=== PATIENT | male | born 1980 | race African-American/Black ===

== ENCOUNTER 2018-09-18 16:09 | Emergency (ER) | payer SELFPAY ==
[~2018-09-18] VITALS: Ht 188 cm; Wt 102.1 kg
[2018-09-18 16:30] VITALS: BP 139/75
[2018-09-18] MEDS ORDERED: Ketorolac 30mg Inj IV ONE (17:15)
[2018-09-18 17:22] LABS: ANION GAP 13 mmol/L (5-15); BASOPHILS % (AUTO) 0.9 % (0.0-2.0); BLOOD UREA NITROGEN 13 mg/dL (7-18); CALCIUM 10.4 MG/DL (8.5-10.1); CARBON DIOXIDE 24 MMOL/L (21-32); CHLORIDE 101 MMOL/L (98-107); CREATININE 1.2 MG/DL (0.55-1.30); EOSINOPHILS % (AUTO) 0.1 % (0.0-3.0); HEMATOCRIT 48.6 % (42.0-52.0); HEMOGLOBIN 17.3 G/DL (14.2-18.0); LYMPHOCYTES % (AUTO) 12.6 % (20.0-45.0); MEAN CORPUSCULAR VOLUME 87 FL (80-99); MONOCYTES % (AUTO) 5.7 % (1.0-10.0); NEUTROPHILS % (AUTO) 80.7 % (45.0-75.0); PLATELET COUNT 269 K/UL (150-450); POTASSIUM 4.3 MMOL/L (3.5-5.1); RED BLOOD COUNT 5.57 M/UL (4.70-6.10); RED CELL DISTRIBUTION WIDTH 11.6 % (11.6-14.8); SODIUM 138 MMOL/L (136-145); WHITE BLOOD COUNT 13.8 K/UL (4.8-10.8)
[2018-09-18 17:33] LABS: ALANINE AMINOTRANSFERASE 28 U/L (12-78); ALBUMIN 4.7 G/DL (3.4-5.0); ALKALINE PHOSPHATASE 91 U/L (46-116); ASPARTATE AMINO TRANSFERASE 49 U/L (15-37); BILIRUBIN,TOTAL 2.4 MG/DL (0.2-1.0)
[2018-09-18 17:38] LABS: BILIRUBIN,DIRECT 0.3 MG/DL (0.0-0.3)
[2018-09-18] MEDS ORDERED: Haloperidol 5mg/ml Inj ONE (18:34)
[2018-09-18] MEDS ORDERED: LORazepam Inj 2mg/ml 1ml ONE (18:34)
[2018-09-18] MEDS ORDERED: Haloperidol 5mg/ml Inj IM ONE (18:45)
[2018-09-18] MEDS ORDERED: LORazepam Inj 2mg/ml 1ml IM ONE (18:45)
[2018-09-18 18:55] LABS: APPEARANCE,URINE CLEAR; BILIRUBIN, URINE NEGATIVE (NEGATIVE); COLOR,URINE PALE YELLOW; GLUCOSE, URINE (UA) NEGATIVE (NEGATIVE); KETONES,URINE NEGATIVE (NEGATIVE); LEUKOCYTE ESTERASE ,URINE NEGATIVE (NEGATIVE); NITRITE,URINE NEGATIVE (NEGATIVE); PH,URINE 6 (4.5-8.0); PROTEIN,URINE NEGATIVE (NEGATIVE); UROBILINOGEN,URINE NORMAL MG/DL (0.0-1.0)
[2018-09-18 19:07] VITALS: BP 129/79
--- NOTE | 2018-09-18 20:32 | Emergency Room Report ---
History of Present Illness General Chief Complaint: Pain Source: Patient (Venessa Richmond) Present Illness HPI 38-year-old male presents to the emergency department complaining of 8 out of 10 in severity right-sided flank pain times one day. Patient denies vomiting he reports some nausea he does not confirm or deny the character of his pain. Patient has a history of psychiatric disorder which is unknown. History and ROS are limited due to being a poor historian. Patient shows intermittent episodes of pain. He makes several bizarre remarks about hearing voices. pt. denies SI, HI or PSA's. pt. denies being rx'd psychiatric medications. pt. states a week ago he did take 5-6 tramadol and had a seizure. Pt. denies hx of seizures otherwise. Denies constipation or diarrhea. denies hematuria or dysuria. Denies hx of renal stones. (Venessa Richmond) Allergies: Coded Allergies: No Known Allergies (Unverified , 09/18/18) Patient History Limited by: other - pt. poor historian Past Medical History: see triage record, psych hx Past Surgical History: none Pertinent Family History: none Reviewed Nursing Documentation: PMH: Agreed; PSxH: Agreed (Venessa Richmond) Nursing Documentation-PMH Past Medical History: No History, Except For History Of Psychiatric Problem: Yes - unknown psychiatric Hx Seizures: Yes (Venessa Richmond) Review of Systems All Other Systems: negative except mentioned in HPI (Venessa Richmond) Physical Exam Vital Signs Date Time Temp Pulse Resp B/P (MAP) Pulse Ox O2 Delivery O2 Flow Rate FiO2 09/18/18 16:03 98.8 120 22 147/75 99 Room Air Sp02 EP Interpretation: reviewed, normal General Appearance: no apparent distress, alert, GCS 15, non-toxic Head: normocephalic, atraumatic Eyes: bilateral eye normal inspection, bilateral eye PERRL ENT: hearing grossly normal, normal voice Neck: full range of motion Respiratory: lungs clear, normal breath sounds, speaking full sentences Cardiovascular #1: regular rate, rhythm, tachycardia Gastrointestinal: normal bowel sounds, non tender, soft, non-distended, no guarding, other - no CVA tenderness Rectal: deferred Genitourinary: normal inspection, no CVA tenderness Musculoskeletal: back normal, gait/station normal, normal range of motion, non- tender Neurologic: alert, oriented x3, responsive, motor strength/tone normal, sensory intact, normal gait, speech normal, grossly normal Psychiatric: no suicidal/homicidal ideation, other - Pt. with auditory hallucinations, and off-color comments and gestures. Skin: normal color, no rash, warm/dry, well hydrated (Venessa Richmond) Medical Decision Making PA Attestation Dr. Lopez is my supervising Physician whom patient management has been discussed with. (Venessa Richmond) Diagnostic Impression: Primary Impression: Right flank pain Additional Impression: Behavior disturbance ER Course 38-year-old male presents to the emergency department complaining of 8 out of 10 in severity right-sided flank pain times one day. Patient denies vomiting he reports some nausea he does not confirm or deny the character of his pain. Patient has a history of psychiatric disorder which is unknown. History and ROS are limited due to being a poor historian. Patient shows intermittent episodes of pain. He makes several bizarre remarks about hearing voices. pt. denies SI, HI or PSA's. pt. denies being rx'd psychiatric medications. pt. states a week ago he did take 5-6 tramadol and had a seizure. Pt. denies hx of seizures otherwise. Denies constipation or diarrhea. denies hematuria or dysuria. Denies hx of renal stones. Ddx considered but are not limited to Diverticulitis, acute appy, diarrhea,UC, PUD, GE, pancreatitis, gallstone, kidney stone, pyelonephritis, UTI, obstruction , OD, SI/HI, psychosis, UTI, intoxication Vital signs: Tachycardic, pt. is afebrile H&PE are most consistent with possible renal calculi, and/or psychiatric behavioral disturbance. -behavioral/mental health issue ORDERS: -CBC, CMP, lipase: unremarkable other then WBC's 13.8, and AST mildly elevated - UA: unremarkable -UDS: All negative -Salicylates, Acetaminophen, and ETOH - no acute intoxication. - CT abdomen and pelvis no contrast: unremarkable ED INTERVENTIONS: -- 1000NS - Toradol IV Pt. took off running with gown un-done 1/2 naked down the back hallway into the hospital. Security was required to coax him back to the ED. pt. again makes several off-comments. -Haldol 10mg IM -Ativan 2mg IM --Triage Nurse reported after the pt. required sedation that EMS stated en- route to ED, pt. allegedly stuck his finger in his rectum and then into his mouth multiple times. DISPOSITION: Pt. medically cleared, pending PET eval. Labs Test 09/18/18 16:39 09/18/18 18:40 White Blood Count 13.8 K/UL (4.8-10.8) Red Blood Count 5.57 M/UL (4.70-6.10) Hemoglobin 17.3 G/DL (14.2-18.0) Hematocrit 48.6 % (42.0-52.0) Mean Corpuscular Volume 87 FL (80-99) Mean Corpuscular Hemoglobin 31.1 PG (27.0-31.0) Mean Corpuscular Hemoglobin Concent 35.7 G/DL (32.0-36.0) Red Cell Distribution Width 11.6 % (11.6-14.8) Platelet Count 269 K/UL (150-450) Mean Platelet Volume 7.5 FL (6.5-10.1) Neutrophils (%) (Auto) 80.7 % (45.0-75.0) Lymphocytes (%) (Auto) 12.6 % (20.0-45.0) Monocytes (%) (Auto) 5.7 % (1.0-10.0) Eosinophils (%) (Auto) 0.1 % (0.0-3.0) Basophils (%) (Auto) 0.9 % (0.0-2.0) Sodium Level 138 MMOL/L (136-145) Potassium Level 4.3 MMOL/L (3.5-5.1) Chloride Level 101 MMOL/L (98-107) Carbon Dioxide Level 24 MMOL/L (21-32) Anion Gap 13 mmol/L (5-15) Blood Urea Nitrogen 13 mg/dL (7-18) Creatinine 1.2 MG/DL (0.55-1.30) Estimat Glomerular Filtration Rate > 60 mL/min (>60) Glucose Level 135 MG/DL (74-106) Calcium Level 10.4 MG/DL (8.5-10.1) Total Bilirubin 2.4 MG/DL (0.2-1.0) Direct Bilirubin 0.3 MG/DL (0.0-0.3) Aspartate Amino Transf (AST/SGOT) 49 U/L (15-37) Alanine Aminotransferase (ALT/SGPT) 28 U/L (12-78) Alkaline Phosphatase 91 U/L (46-116) Total Protein 9.4 G/DL (6.4-8.2) Albumin 4.7 G/DL (3.4-5.0) Globulin 4.7 g/dL Albumin/Globulin Ratio 1.0 (1.0-2.7) Lipase 148 U/L (73-393) Urine Color Pale yellow Urine Appearance Clear Urine pH 6 (4.5-8.0) Urine Specific [place] 1.005 (1.005-1.035) Urine Protein Negative (NEGATIVE) Urine Glucose (UA) Negative (NEGATIVE) Urine Ketones Negative (NEGATIVE) Urine Blood Negative (NEGATIVE) Urine Nitrite Negative (NEGATIVE) Urine Bilirubin Negative (NEGATIVE) Urine Urobilinogen Normal MG/DL (0.0-1.0) Urine Leukocyte Esterase Negative (NEGATIVE) Urine Opiates Screen Negative (NEGATIVE) Urine Barbiturates Screen Negative (NEGATIVE) Phencyclidine (PCP) Screen Negative (NEGATIVE) Urine Amphetamines Screen Negative (NEGATIVE) Urine Benzodiazepines Screen Negative (NEGATIVE) Urine Cocaine Screen Negative (NEGATIVE) Urine Marijuana (THC) Screen Negative (NEGATIVE) (Venessa Richmond) ER Course I also evaluated patient. Patient appeared to be delusional and paranoid. He kept reporting being chased by multiple people. He appeared be respond to internal stimuli. acute psychosis, likely underlying mental illness. Awaiting evaluation by PET (Melany Lopez MD) CT/MRI/US Diagnostic Results CT/MRI/US Diagnostic Results : Imaging Test Ordered: CT abdomen and pelvis no contrast: Impression unremarkable-Per official radiology report- Please see report for specific details. (Venessa Richmond) Last Vital Signs Date Time Temp Pulse Resp B/P (MAP) Pulse Ox O2 Delivery O2 Flow Rate FiO2 09/18/18 19:07 98.8 95 22 129/79 96 Room Air (Venessa Richmond) Signed Out To: Dr. Eng (Venessa Richmond) Scripts Unable to Obtain Active Prescriptions or Reported Meds Referrals: NOT CHOSEN IPA/,REFERRING (PCP) Venessa Richmond Sep 18, 2018 20:32 Melany Lopez MD Sep 18, 2018 21:07
[2018-09-18 21:00] VITALS: BP 129/79
[2018-09-18 23:00] VITALS: BP 109/72
[2018-09-19 02:13] VITALS: BP 111/75
[2018-09-19 04:30] VITALS: BP 106/64
[2018-09-19 06:15] VITALS: BP 115/65
[2018-09-19 07:36] VITALS: BP 145/99
--- NOTE | 2018-09-19 10:14 | Diagnostic Imaging Report ---
Indication: Abdominal pain Technique: Continuous helical transaxial imaging of the abdomen and pelvis was obtained from the lung bases to the pubic symphysis. No intravenous contrast was administered. Coronal 2-D reformats were also obtained. Automatic Exposure Control was utilized. Total Dose length Product (DLP): 1346.[address] Dose Index Volume (CTDIvol): 18.4,19.75 mGy Comparison: none Findings: The lung bases are clear. Solid organs are unremarkable. There is no hydronephrosis or renal stones identified. Gallbladder is unremarkable. The appendix is normal. No bowel obstruction free fluid or free air identified. IMPRESSION: No acute findings [facility] has communicated the preliminary results to the Emergency Department. Their findings are largely concordant with this report. The CT scanner at [facility] is accredited by the [employer] and the scans are performed using dose optimization techniques as appropriate to a performed exam including Automatic Exposure control.
[2018-09-19] MEDS ORDERED: RISPERIDONE2 MG ORAL (11:31)
[2018-09-19] MEDS ORDERED: Haloperidol Decanoate 50mg Inj IM ONE (12:00)
[2018-09-19 17:40] VITALS: BP 120/70
--- NOTE | 2018-09-21 19:23 | Consultation ---
History of Present Illness General Date patient seen: Sep 19, 2018 Chief Complaint: Behavioral Complaint Present Illness HPI 38-year-old male presents to the emergency department complaining of 8 out of 10 in severity right-sided flank pain times one day. the pt was bizarre and was having AH. the pt was not endorsing suicidal nor homicidal ideation. the pt agreed to take haldol dec. the pt was given meds. in er and he was cooperative and calm/ the pt didn't endorse any agitation Allergies: Coded Allergies: No Known Allergies (Unverified , 09/18/18) Medication History Scheduled Risperidone (Risperidone), 2 MG ORAL HS Patient History Limited by: medical condition History Provided By: Patient, Medical Record, PMD Healthcare decision maker Resuscitation status Advanced Directive on File Review of Systems Psychiatric: Reports: prior hx, anxiety, depressed feelings, emotional problems , hallucinations Physical Exam General Appearance: no apparent distress, alert Neurologic: oriented x 3, responsive, depressed affect Height (Feet): 6 Height (Inches): 2.00 Weight (Pounds): 225 Assessment/Plan Status: stable Assessment/Plan schizophrenia the pt wants to leave the pt doesnt meet the criteria for hold haldol dec beckie herman with script and referrals Jyoti Schmitt MD Sep 21, 2018 19:23
== END 2018-09-19 12:18 | disposition home or self-care (01) ==
LOC: EDBD 16:09 → EMR 18:29
DX: R10.9 Unspecified abdominal pain (principal); F91.9 Conduct disorder, unspecified; R44.0 Auditory hallucinations
CPT/HCPCS: 36415; 74176; 80053; 80307; 81003; 82248; 83690; 85025; 96361; 96372; 96374; 99284; J1630; J1631; J1885